=== PATIENT | female | born 1985 | race African-American/Black ===

== ENCOUNTER 2017-04-16 00:58 | Inpatient (IN) ==
[2017-04-16] MEDS ORDERED: OXYTOCIN/LR 20 UNIT/1,000 ML BAG IV SCH (01:30)
[2017-04-16] MEDS: LACTATED RINGERS 1,000 ML IV SCH ×2 (01:35→11:43)
[2017-04-16 02:38] LABS: Basophils % 0.1 % (0.0-0.8); Eosinophils % 0.6 % (0.00-10.9); Hemoglobin 9.5 GM/DL (12.0-16.0); Immature Granulocytes % 0.6 %; Immature Granulocytes Absolute 0.04 #; Lymphocytes # 1.7 10*3/uL (1.4-4.0); Mean Corpuscular HGB Conc 30.6 GM/DL (32-36); Mean Corpuscular Hemoglobin 23 PG (27-34); Mean Corpuscular Volume 74.5 FL (87-102); Mean Platelet Volume 12.7 FL (9.6-12.0); Monocytes # 0.6 10*3/uL (0.11-0.8); Monocytes % 7.9 % (1.7-12.7); Neutrophils # 4.6 10*3/uL (1.4-7.4); Neutrophils % 65.8 % (38.7-73.9); Platelet Count 190 T/CUMM (130-400); Red Blood Count 4.16 MC/CUMM (3.8-5.5); Red Cell Distribution Width 15.9 % (9.3-17.3); White Blood Count 6.9 T/CUMM (4-12)
[2017-04-16 03:11] LABS: Albumin 2.5 G/DL (3.4-5.0); Bilirubin,Total 0.5 MG/DL (0.2-1.0); Calcium 8.4 MG/DL (8.5-10.1); Osmolality,Calculated 271.7 MOS/KG (273-304); Potassium 3.9 MMOL/L (3.5-5.1); Total Protein 6.7 G/DL (6.4-8.3)
[2017-04-16] MEDS: MEPERIDINE 50 MG/1 ML VIAL IV PRN ×2 (05:38→09:24)
[2017-04-16] MEDS: ONDANSETRON 4 MG/2 ML VIAL IV PRN ×2 (05:38→12:33)
[2017-04-16] MEDS ORDERED: hydrOXYzine HCL 25 MG/1 ML VIAL IM PRN (10:46)
[2017-04-16] MEDS ORDERED: PROMETHAZINE 25 MG/1 ML VIAL IM ONE (10:46)
[2017-04-16] MEDS ORDERED: diphenhydrAMINE 50 MG/1 ML VIAL IV PRN (10:46)
[2017-04-16] MEDS ORDERED: FAMOTIDINE 20 MG/2 ML VIAL IV ONE (10:46)
[2017-04-16] MEDS ORDERED: ePHEDrine 50 MG/ML AMP IV PRN (10:46)
[2017-04-16] MEDS ORDERED: fentaNYL 2 MCG/ROPIV 0.2% EPID 150 ML EPIDURAL SCH (11:00)
[2017-04-16] MEDS ORDERED: CITRIC ACID/SODIUM CITRATE 30 ML UDCUP PO ONE (11:02)
[2017-04-16] MEDS ORDERED: ACETAMINOPHEN/CODEINE 300-30 MG TABLET PO PRN (16:13)
[2017-04-16 16:25] LABS: Cord Arterial Blood HCO3 21.4 MMOL/L
[2017-04-16 16:32] LABS: Cord Venous Blood HCO3 22.1 MMOL/L; Cord Venous Blood PCO2 44.1 MMHG; Cord Venous Blood PO2 36.8 MMHG
[2017-04-16] MEDS ORDERED: WITCH HAZEL PADS 100/JAR TOP PRN (21:58)
[2017-04-16] MEDS ORDERED: BISACODYL 10 MG SUPP RECTAL PRN (21:58)
[2017-04-16] MEDS ORDERED: MEASLES/MUMPS/RUBELLA VACCINE 0.5 ML VIAL SUBCUT ONE (21:58)
[2017-04-16] MEDS ORDERED: ACETAMINOPHEN 325 MG TABLET PO PRN (21:58)
[2017-04-16] MEDS ORDERED: HYDROCORTISONE 2.5% RECTAL CREAM 30 GM TUBE TOP PRN (21:58)
[2017-04-16] MEDS ORDERED: RHO(D) IMMUNE GLOBULIN 300 MCG SYRINGE IM ONE (21:58)
[2017-04-16] MEDS ORDERED: LANOLIN 50% CREAM 0.3 OZ TUBE TOP PRN (21:58)
[2017-04-16] MEDS ORDERED: DIPH/TET/ACEL PERT BOOSTER VACCINE 0.5 ML VIAL IM ONE (21:58)
[2017-04-16] MEDS ORDERED: oxyCODONE/ACETAMINOPHEN 5-325 MG TABLET PO PRN ×2 (21:58)
[2017-04-16] MEDS ORDERED: BENZOCAINE 20%/MENTHOL 0.5% SPRAY 56 GM CAN TOP PRN (21:58)
[2017-04-16] MEDS: DOCUSATE SODIUM 100 MG CAPSULE PO SCH (22:23)
[2017-04-16] MEDS: IBUPROFEN 800 MG TABLET PO PRN (23:47)
[2017-04-17 06:09] LABS: Basophils % 0.2 % (0.0-0.8); Eosinophils % 0.2 % (0.00-10.9); Hematocrit 29.5 VOL% (35.7-47.0); Hemoglobin 9.3 GM/DL (12.0-16.0); Immature Granulocytes % 0.6 %; Immature Granulocytes Absolute 0.06 #; Lymphocytes # 1.6 10*3/uL (1.4-4.0); Lymphocytes % 14.9 % (21.3-54.2); Mean Corpuscular HGB Conc 31.5 GM/DL (32-36); Mean Corpuscular Hemoglobin 23 PG (27-34); Mean Corpuscular Volume 73.8 FL (87-102); Monocytes # 0.9 10*3/uL (0.11-0.8); Monocytes % 8.7 % (1.7-12.7); Neutrophils % 75.4 % (38.7-73.9); Platelet Count 156 T/CUMM (130-400); Red Cell Distribution Width 15.9 % (9.3-17.3); White Blood Count 10.7 T/CUMM (4-12)
[2017-04-17] MEDS: IBUPROFEN 800 MG TABLET PO PRN ×2 (12:25→23:22)
[2017-04-17] MEDS: DOCUSATE SODIUM 100 MG CAPSULE PO SCH ×2 (12:27→21:19)
[2017-04-18] MEDS: IBUPROFEN 800 MG TABLET PO PRN (09:44)
[2017-04-18] MEDS: DOCUSATE SODIUM 100 MG CAPSULE PO SCH (09:44)
[2017-04-18 11:23] VITALS: BP 146/74
== END 2017-04-18 14:20 | disposition home or self-care (01) | DRG 775 ==
LOC: N.LDOUT 00:58 → N.LD 01:02 → N.OB 19:35
PROVIDERS: ADMIT Obstetrics & Gynecology; ATTEND Obstetrics & Gynecology